=== PATIENT | male | born 1945 | race Asian ===

== ENCOUNTER 2017-12-06 04:07 | Emergency (ER) | payer OTHER ==
[2017-12-06] MEDS: ONDANSETRON 4 MG INJ IV (04:44)
[2017-12-06] MEDS: morphine 4 MG/ML VIAL IV (04:44)
[2017-12-06] MEDS: SOD CHLORIDE 0.9% 500 ML IV (05:00)
[2017-12-06 05:18] LABS: ADD MAN DIFF? NO
[2017-12-06 05:21] LABS: WHITE BLOOD COUNT 9.2 10^3/ul (4.8-10.8)
[2017-12-06 05:21] LABS: BASOPHIL # 0.1 10^3/ul (0.0-0.1); BASOPHILS % 1.2 % (0.0-2.0); EOSINOPHILS # 1.8 10^3/ul (0.0-0.5); EOSINOPHILS % 19.1 % (0.0-7.0); HEMATOCRIT 35.9 % (42.0-52.0); HEMOGLOBIN 11.5 g/dl (14.0-18.0); LYMPHOCYTES # 1.3 10^3/ul (0.8-2.9); LYMPHOCYTES % 14.1 % (15.0-51.0); MEAN CORPUSCULAR HEMOGLOBIN 29.1 pg (29.0-33.0); MEAN CORPUSCULAR VOLUME 90.9 fl (82.0-101.0); MEAN PLATELET VOLUME 9.2 fl (7.4-10.4); MONOCYTE # 0.6 10^3/ul (0.3-0.9); NEUTROPHIL # 5.5 10^3/ul (1.6-7.5); NEUTROPHILS % 59.3 % (39.0-77.0); PLATELET COUNT 256 10^3/UL (140-415); RED BLOOD COUNT 3.95 10^6/ul (4.70-6.10); RED CELL DISTRIBUTION WIDTH 14.9 % (11.5-14.5)
[2017-12-06 05:39] LABS: INR 0.82; PROTIME 11.4 Sec (11.9-14.9); PT RATIO 0.9
[2017-12-06 05:40] LABS: PARTIAL THROMBOPLASTIN TIME 26.5 Sec (23.0-35.0)
[2017-12-06 05:43] LABS: ALANINE AMINOTRANSFERASE 65 IU/L (13-69); ALBUMIN 3.3 g/dl (3.3-4.9); ALKALINE PHOSPHATASE 158 IU/L (42-121); ANION GAP 12 (8-16); ASPARTATE AMINO TRANSFERASE 36 IU/L (15-46); BILIRUBIN,INDIRECT 0.2 mg/dl (0-1.1); BILIRUBIN,TOTAL 0.2 mg/dl (0.2-1.3); BLOOD UREA NITROGEN 35 mg/dl (7-20); CALCIUM 9.3 mg/dl (8.4-10.2); CARBON DIOXIDE 29 mmol/L (21-31); CHLORIDE 104 mmol/L (97-110); CREATININE 2.14 mg/dl (0.61-1.24); GLUCOSE 133 mg/dl (70-220); SODIUM 142 mmol/L (135-144); TOTAL PROTEIN 6.6 g/dl (6.1-8.1)
[2017-12-06 06:19] LABS: LIPASE 356 U/L (23-300)
[2017-12-06] MEDS: POTASSIUM CHLORIDE (SR) 20 MEQ TAB PO (06:40)
== END 2017-12-06 06:56 | disposition home or self-care (01) ==
LOC: E/R 04:07
DX: R51 Headache (principal); E87.6 Hypokalemia; J45.909 Unspecified asthma, uncomplicated; I10 Essential (primary) hypertension; E11.9 Type 2 diabetes mellitus without complications; Z79.82 Long term (current) use of aspirin; Z87.891 Personal history of nicotine dependence
CPT/HCPCS: 36415; 70450; 71045; 80053; 83690; 84484; 85025; 85610; 85730; 93005; 99285-25

== ENCOUNTER 2017-12-27 03:04 | Observation (INO) | payer OTHER ==
[2017-12-27 03:21] LABS: ADD MAN DIFF? NO
[2017-12-27 03:23] LABS: WHITE BLOOD COUNT 12.8 10^3/ul (4.8-10.8)
[2017-12-27 03:23] LABS: BASOPHIL # 0.2 10^3/ul (0.0-0.1); BASOPHILS % 1.4 % (0.0-2.0); EOSINOPHILS # 1.9 10^3/ul (0.0-0.5); EOSINOPHILS % 15.1 % (0.0-7.0); HEMOGLOBIN 13.4 g/dl (14.0-18.0); LYMPHOCYTES # 3.2 10^3/ul (0.8-2.9); LYMPHOCYTES % 24.6 % (15.0-51.0); MEAN CORPUSCULAR HEMOGLOBIN 29.7 pg (29.0-33.0); MEAN CORPUSCULAR HGB CONC 31.2 g/dl (32.0-37.0); MEAN CORPUSCULAR VOLUME 95.3 fl (82.0-101.0); MEAN PLATELET VOLUME 8.9 fl (7.4-10.4); MONOCYTE # 0.6 10^3/ul (0.3-0.9); MONOCYTES % 4.6 % (0.0-11.0); NEUTROPHIL # 6.9 10^3/ul (1.6-7.5); PLATELET COUNT 286 10^3/UL (140-415); RED BLOOD COUNT 4.51 10^6/ul (4.70-6.10); RED CELL DISTRIBUTION WIDTH 14.6 % (11.5-14.5)
[2017-12-27] MEDS: ALBUTEROL 0.5% (NEB) 2.5 MG/0.5 ML AMP INH (03:29)
[2017-12-27] MEDS: IPRATROPIUM (NEB) 0.5 MG/2.5 ML AMP INH (03:29)
[2017-12-27 03:42] LABS: INR 0.86; PROTIME 11.8 Sec (11.9-14.9); PT RATIO 0.9
[2017-12-27 03:43] LABS: PARTIAL THROMBOPLASTIN TIME 28.2 Sec (23.0-35.0)
[2017-12-27] MEDS: METHYLPREDNISOLONE 125 MG INJ IV (03:56)
[2017-12-27 03:59] LABS: ALBUMIN 4.3 g/dl (3.3-4.9); ALKALINE PHOSPHATASE 114 IU/L (42-121); ANION GAP 16 (8-16); ASPARTATE AMINO TRANSFERASE 44 IU/L (15-46); BILIRUBIN,INDIRECT 0.3 mg/dl (0-1.1); BILIRUBIN,TOTAL 0.3 mg/dl (0.2-1.3); BLOOD UREA NITROGEN 39 mg/dl (7-20); CARBON DIOXIDE 25 mmol/L (21-31); CHLORIDE 110 mmol/L (97-110); CREATININE 2.46 mg/dl (0.61-1.24); GLUCOSE 184 mg/dl (70-220); POTASSIUM 4.6 mmol/L (3.5-5.1); SODIUM 146 mmol/L (135-144); TOTAL PROTEIN 7.6 g/dl (6.1-8.1)
[2017-12-27 04:08] LABS: B-TYPE NATRIURETIC PEPTIDE 242 PG/ML (0-125)
[2017-12-27 04:12] LABS: TROPONIN-I 0.021 ng/ml (0.000-0.120)
[2017-12-27 05:48] LABS: ALANINE AMINOTRANSFERASE 52 IU/L (13-69)
[2017-12-27 09:00] LABS: LACTIC ACID 1.2 mmol/L (0.5-2.0)
[2017-12-27] MEDS: MULTIVIT/CA CARB/B CMPLX/FA TAB PO (09:00)
[2017-12-27] MEDS: AMLODIPINE 10 MG TAB PO (09:00)
[2017-12-27] MEDS ORDERED: ACETAMINOPHEN 325 MG TAB PO (09:00)
[2017-12-27] MEDS: ALLOPURINOL 100 MG TAB PO (09:00)
[2017-12-27] MEDS ORDERED: ONDANSETRON 4 MG INJ IV (09:00)
[2017-12-27] MEDS ORDERED: DOCUSATE SODIUM 100 MG CAP PO (09:00)
[2017-12-27] MEDS ORDERED: NACL 0.9% 3 ML SYG IV (09:00)
[2017-12-27] MEDS ORDERED: ALBUTEROL 0.083% (NEB) 2.5 MG/3 ML AMP HHN (09:00)
[2017-12-27] MEDS: ALBUTEROL/IPRATROPIUM (NEB) 3 ML AMP HHN ×3 (09:16→19:55)
[2017-12-27] MEDS ORDERED: ASPIRIN (EC) 81 MG TAB PO (10:00)
[2017-12-27] MEDS ORDERED: GLUCAGON 1 MG INJ IM (10:00)
[2017-12-27] MEDS ORDERED: DEXTROSE 50% 50 ML SYRINGE IV ×2 (10:00)
[2017-12-27] MEDS ORDERED: GLUCOSE GEL 15 GRAM TUBE BUCCAL (10:00)
[2017-12-27] MEDS ORDERED: GLUCOSE GEL 15 GRAM TUBE PO ×2 (10:00)
[2017-12-27] MEDS: METHYLPREDNISOLONE 40 MG INJ IV ×3 (10:21→20:31)
[2017-12-27] MEDS: DOXYCYCLINE 100 MG in SOD CHLORIDE 0.9% 250 ML IVPB ×2 (11:22→20:27)
[2017-12-27] MEDS: INSULIN ASPART [NOVOLOG] 3 ML PEN SC ×3 (11:45→20:48)
[2017-12-27] MEDS: HEPARIN 5,000 UNIT/0.5 ML VIAL SC ×2 (15:21→20:32)
[2017-12-27] MEDS: ATORVASTATIN 20 MG TAB PO (20:29)
[2017-12-28] MEDS: ALBUTEROL/IPRATROPIUM (NEB) 3 ML AMP HHN ×3 (01:13→14:00)
[2017-12-28] MEDS: ACCU-CHEK XX (02:00)
[2017-12-28] MEDS: METHYLPREDNISOLONE 40 MG INJ IV ×2 (06:13→13:30)
[2017-12-28] MEDS: HEPARIN 5,000 UNIT/0.5 ML VIAL SC (06:14)
[2017-12-28 07:18] LABS: ADD MAN DIFF? NO
[2017-12-28 07:27] LABS: BASOPHILS % 0.1 % (0.0-2.0); HEMATOCRIT 34.9 % (42.0-52.0); HEMOGLOBIN 11.1 g/dl (14.0-18.0); LYMPHOCYTES # 1.1 10^3/ul (0.8-2.9); LYMPHOCYTES % 12.1 % (15.0-51.0); MEAN CORPUSCULAR HEMOGLOBIN 29.6 pg (29.0-33.0); MEAN CORPUSCULAR HGB CONC 31.8 g/dl (32.0-37.0); MEAN CORPUSCULAR VOLUME 93.1 fl (82.0-101.0); MEAN PLATELET VOLUME 9.3 fl (7.4-10.4); MONOCYTE # 0.2 10^3/ul (0.3-0.9); MONOCYTES % 2.4 % (0.0-11.0); NEUTROPHIL # 7.9 10^3/ul (1.6-7.5); NEUTROPHILS % 84.9 % (39.0-77.0); PLATELET COUNT 252 10^3/UL (140-415); RED BLOOD COUNT 3.75 10^6/ul (4.70-6.10); RED CELL DISTRIBUTION WIDTH 14.5 % (11.5-14.5)
[2017-12-28 07:27] LABS: WHITE BLOOD COUNT 9.3 10^3/ul (4.8-10.8)
[2017-12-28 07:53] LABS: ANION GAP 11 (8-16); BLOOD UREA NITROGEN 61 mg/dl (7-20); CALCIUM 9.1 mg/dl (8.4-10.2); CARBON DIOXIDE 23 mmol/L (21-31); CHLORIDE 108 mmol/L (97-110); CREATININE 2.94 mg/dl (0.61-1.24); GLUCOSE 163 mg/dl (70-220); POTASSIUM 3.8 mmol/L (3.5-5.1); SODIUM 142 mmol/L (135-144)
[2017-12-28] MEDS: ALLOPURINOL 100 MG TAB PO (08:01)
[2017-12-28] MEDS: MULTIVIT/CA CARB/B CMPLX/FA TAB PO (08:01)
[2017-12-28] MEDS: AMLODIPINE 10 MG TAB PO (08:01)
[2017-12-28] MEDS: DOXYCYCLINE 100 MG in SOD CHLORIDE 0.9% 250 ML IVPB (08:06)
[2017-12-28 08:28] LABS: AADO2 Arterial 66.6 mmHg (7.0-24.0); Allen Test ACCEPTAB; Arterial Base Excess -4.4 mmol/L (-3.0-3); Arterial Blood Gas Oxygen Sat 99.4 mmHG (95.0-100.0); Arterial COHb 0.4 % (0.0-3.0); Arterial Fraction of Oxyhgb 98.8 % (93.0-99.0); Arterial HCO3 22.2 mmol/L (22.0-26.0); Arterial MetHb 0.2 % (0.0-1.5); Arterial Total Hemglobin 13.1 g/dl (12.0-18.0); Arterial pCO2 46.3 mmhg (35-45); Blood Gas IEPAP 18/5; MODE MASK - BIPAP; Site Right Radial
[2017-12-28] MEDS: INSULIN ASPART [NOVOLOG] 3 ML PEN SC ×3 (08:30→17:22)
[2017-12-28] MEDS ORDERED: HEPARIN 5,000 UNIT/0.5 ML VIAL (11:27)
[2017-12-28] MEDS: SOD CHLORIDE 0.9% 500 ML IV (11:29)
[2017-12-28] MEDS: HEPARIN SODIUM 5,000 UNIT/ML VIAL SC ×2 (11:56→13:20)
[2017-12-28 14:04] LABS: SODIUM,URINE RANDOM 52 mmol/L (30-90)
[2017-12-28 14:04] LABS: CREATININE,URINE RANDOM 68.08 mg/dl (20-370)
[2017-12-28 16:26] LABS: ANION GAP 12 (5-13); BLOOD UREA NITROGEN 65 mg/dl (7-20); CALCIUM 8.8 mg/dl (8.4-10.2); CARBON DIOXIDE 21 mmol/L (21-31); CHLORIDE 109 mmol/L (97-110); GLUCOSE 219 mg/dl (70-220); POTASSIUM 3.7 mmol/L (3.5-5.1); SODIUM 142 mmol/L (135-144)
== END 2017-12-28 19:02 | disposition home or self-care (01) ==
LOC: E/R 03:04 → TEL 06:06
DX: J44.1 Chronic obstructive pulmonary disease with (acute) exacerbation (principal); I12.9 Hypertensive chronic kidney disease with stage 1 through stage 4 chronic kidney disease, or unspecified chronic kidney disease; N18.9 Chronic kidney disease, unspecified; E11.9 Type 2 diabetes mellitus without complications; E78.5 Hyperlipidemia, unspecified; M10.9 Gout, unspecified; N20.0 Calculus of kidney; N28.1 Cyst of kidney, acquired
CPT/HCPCS: 36415; 36600; 71045; 76775; 80048; 80053; 82803; 82962; 83605; 83880; 84155; 84300; 84484; 85025; 85610; 85730; 90686; 93005; 94640; 94644; 94660; 94664; 96374; 99285-25; G0378

== ENCOUNTER 2018-04-30 09:54 | Emergency (ER) | payer OTHER ==
[2018-04-30] MEDS: HYDROmorphONE 2 MG/ML SYG IM (10:44)
[2018-04-30] MEDS: ONDANSETRON (ODT) 4 MG TAB ODT (10:44)
== END 2018-04-30 11:28 | disposition home or self-care (01) ==
LOC: E/R 09:54
DX: M54.32 Sciatica, left side (principal); J44.9 Chronic obstructive pulmonary disease, unspecified; I10 Essential (primary) hypertension; Z87.891 Personal history of nicotine dependence; Z79.82 Long term (current) use of aspirin
CPT/HCPCS: 96372; 99284-25; J1170

== ENCOUNTER 2018-05-02 11:06 | Emergency (ER) | payer OTHER ==
[2018-05-02] MEDS: IBUPROFEN 600 MG TAB PO (12:47)
== END 2018-05-02 13:25 | disposition home or self-care (01) ==
LOC: E/R 11:06
DX: M54.42 Lumbago with sciatica, left side (principal); J44.9 Chronic obstructive pulmonary disease, unspecified; I10 Essential (primary) hypertension; F17.210 Nicotine dependence, cigarettes, uncomplicated; Z79.82 Long term (current) use of aspirin
CPT/HCPCS: 72110; 73510; 99284-25

== ENCOUNTER 2018-05-03 08:45 | Emergency (ER) | payer OTHER ==
[2018-05-03 10:19] LABS: ADD MAN DIFF? NO
[2018-05-03 10:24] LABS: WHITE BLOOD COUNT 7.3 10^3/ul (4.8-10.8)
[2018-05-03 10:24] LABS: BASOPHILS % 0.4 % (0.0-2.0); EOSINOPHILS # 0.1 10^3/ul (0.0-0.5); EOSINOPHILS % 1.5 % (0.0-7.0); HEMATOCRIT 37.6 % (42.0-52.0); HEMOGLOBIN 11.6 g/dl (14.0-18.0); LYMPHOCYTES # 1.7 10^3/ul (0.8-2.9); LYMPHOCYTES % 23.5 % (15.0-51.0); MEAN CORPUSCULAR HGB CONC 30.9 g/dl (32.0-37.0); MEAN CORPUSCULAR VOLUME 90.6 fl (82.0-101.0); MEAN PLATELET VOLUME 9.1 fl (7.4-10.4); MONOCYTE # 0.7 10^3/ul (0.3-0.9); MONOCYTES % 9.6 % (0.0-11.0); NEUTROPHIL # 4.7 10^3/ul (1.6-7.5); PLATELET COUNT 224 10^3/UL (140-415); RED BLOOD COUNT 4.15 10^6/ul (4.70-6.10); RED CELL DISTRIBUTION WIDTH 15.8 % (11.5-14.5)
[2018-05-03 10:44] LABS: ALANINE AMINOTRANSFERASE 44 IU/L (13-69); ALBUMIN 3.3 g/dl (3.3-4.9); ALKALINE PHOSPHATASE 57 IU/L (42-121); ASPARTATE AMINO TRANSFERASE 32 IU/L (15-46); BILIRUBIN,INDIRECT 0.2 mg/dl (0-1.1); BILIRUBIN,TOTAL 0.2 mg/dl (0.2-1.3); BLOOD UREA NITROGEN 54 mg/dl (7-20); CALCIUM 9.3 mg/dl (8.4-10.2); CHLORIDE 97 mmol/L (97-110); CREATININE 2.08 mg/dl (0.61-1.24); GLUCOSE 104 mg/dl (70-220); LIPASE 367 U/L (23-300); POTASSIUM 3.4 mmol/L (3.5-5.1); SODIUM 142 mmol/L (135-144); TOTAL PROTEIN 6.3 g/dl (6.1-8.1)
[2018-05-03 10:50] LABS: ANION GAP 6 (5-13); CARBON DIOXIDE 39 mmol/L (21-31)
[2018-05-03 12:05] LABS: ADD UMIC YES; UR ASCORBIC ACID 20 mg/dL (NEGATIVE); UR BACTERIA FEW /HPF (NONE SEEN); UR BILIRUBIN (Dip) NEGATIVE (NEGATIVE); UR BLOOD (Dip) NEGATIVE (NEGATIVE); UR CLARITY CLEAR (CLEAR); UR COLOR YELLOW (YELLOW); UR GLUCOSE (Dip) NEGATIVE (NEGATIVE); UR KETONES (Dip) NEGATIVE (NEGATIVE); UR LEUKOCYTE ESTERASE (Dip) NEGATIVE Leu/ul (NEGATIVE); UR MUCUS FEW /HPF (NONE SEEN); UR NITRITE (Dip) NEGATIVE (NEGATIVE); UR RBC 1 /HPF (0-5); UR SPECIFIC GRAVITY (Dip) 1.012 (1.003-1.030); UR TOTAL PROTEIN (Dip) 2+ mg/dl (NEGATIVE); UR UROBILINOGEN (Dip) NEGATIVE (NEGATIVE); UR WBC 1 /HPF (0-5)
== END 2018-05-03 13:22 | disposition home or self-care (01) ==
LOC: E/R 08:45
DX: N28.9 Disorder of kidney and ureter, unspecified (principal); J45.909 Unspecified asthma, uncomplicated; I10 Essential (primary) hypertension; J44.9 Chronic obstructive pulmonary disease, unspecified; Z79.82 Long term (current) use of aspirin; Z87.891 Personal history of nicotine dependence
CPT/HCPCS: 36415; 72148; 80053; 81001; 83690; 84484; 85025; 99284-25

== ENCOUNTER 2018-05-05 15:37 | Emergency (ER) | payer OTHER ==
[2018-05-05] MEDS: ACETAMINOPHEN 500 MG TAB PO (16:11)
[2018-05-05] MEDS: HYDROmorphONE 2 MG/ML SYG IM (16:22)
[2018-05-05] MEDS: ONDANSETRON (ODT) 4 MG TAB ODT (16:22)
== END 2018-05-05 16:56 | disposition home or self-care (01) ==
LOC: E/R 15:37
DX: M54.32 Sciatica, left side (principal); J44.9 Chronic obstructive pulmonary disease, unspecified; I10 Essential (primary) hypertension; Z79.82 Long term (current) use of aspirin; Z87.891 Personal history of nicotine dependence
CPT/HCPCS: 51702; 96372; 99284-25

== ENCOUNTER 2018-05-15 16:04 | Emergency (ER) | payer OTHER ==
[2018-05-15 18:49] LABS: ADD MAN DIFF? NO
[2018-05-15 18:54] LABS: WHITE BLOOD COUNT 7.7 10^3/ul (4.8-10.8)
[2018-05-15 18:54] LABS: BASOPHILS % 0.4 % (0.0-2.0); EOSINOPHILS % 0.5 % (0.0-7.0); HEMOGLOBIN 12.2 g/dl (14.0-18.0); LYMPHOCYTES # 1.2 10^3/ul (0.8-2.9); LYMPHOCYTES % 16.1 % (15.0-51.0); MEAN CORPUSCULAR HEMOGLOBIN 28.4 pg (29.0-33.0); MEAN CORPUSCULAR HGB CONC 31.3 g/dl (32.0-37.0); MEAN CORPUSCULAR VOLUME 90.7 fl (82.0-101.0); MEAN PLATELET VOLUME 8.7 fl (7.4-10.4); MONOCYTE # 0.5 10^3/ul (0.3-0.9); MONOCYTES % 6.9 % (0.0-11.0); NEUTROPHIL # 5.8 10^3/ul (1.6-7.5); NEUTROPHILS % 75.1 % (39.0-77.0); PLATELET COUNT 245 10^3/UL (140-415); RED CELL DISTRIBUTION WIDTH 17.4 % (11.5-14.5)
[2018-05-15 19:11] LABS: ANION GAP 8 (5-13); BLOOD UREA NITROGEN 44 mg/dl (7-20); CALCIUM 9.5 mg/dl (8.4-10.2); CARBON DIOXIDE 35 mmol/L (21-31); CHLORIDE 97 mmol/L (97-110); CREATININE 1.89 mg/dl (0.61-1.24); GLUCOSE 138 mg/dl (70-220); POTASSIUM 3.3 mmol/L (3.5-5.1); SODIUM 140 mmol/L (135-144)
[2018-05-15 19:13] LABS: INR 0.78; PARTIAL THROMBOPLASTIN TIME 22.6 Sec (23.0-35.0); PT RATIO 0.9
[2018-05-15 19:23] LABS: B-TYPE NATRIURETIC PEPTIDE 341 PG/ML (0-125); TROPONIN-I 0.028 ng/ml (0.000-0.120)
[2018-05-15 19:26] LABS: AADO2 Arterial 47.3 mmHg (7.0-24.0); Allen Test ACCEPTAB; Arterial Base Excess 8.3 mmol/L (-3.0-3); Arterial Blood Gas Oxygen Sat 96.8 mmHG (95.0-100.0); Arterial COHb 0.2 % (0.0-3.0); Arterial Fraction of Oxyhgb 96.4 % (93.0-99.0); Arterial MetHb 0.2 % (0.0-1.5); Arterial pCO2 45.9 mmhg (35-45); MODE NASAL CANNULA; Site Right Radial
[2018-05-15] MEDS: POTASSIUM CHLORIDE (SR) 10 MEQ TAB PO (20:18)
== END 2018-05-15 20:30 | disposition home or self-care (01) ==
LOC: E/R 20:30
DX: R09.81 Nasal congestion (principal); E87.6 Hypokalemia; D64.9 Anemia, unspecified; J44.9 Chronic obstructive pulmonary disease, unspecified; I12.9 Hypertensive chronic kidney disease with stage 1 through stage 4 chronic kidney disease, or unspecified chronic kidney disease; N18.9 Chronic kidney disease, unspecified; E11.22 Type 2 diabetes mellitus with diabetic chronic kidney disease; J45.901 Unspecified asthma with (acute) exacerbation; Z87.891 Personal history of nicotine dependence; Z79.82 Long term (current) use of aspirin
CPT/HCPCS: 36415; 36600; 71045; 80048; 82803; 83880; 84484; 85025; 85610; 85730; 93005; 99285-25

== ENCOUNTER 2018-06-11 03:05 | Emergency (ER) | payer OTHER ==
[2018-06-11 04:55] LABS: URINE BLOOD (Dip) POC Negative (NEGATIVE); URINE KETONES (Dip) POC Negative (NEGATIVE); URINE LEUKOCYTE EST (Dip) POC Negative (NEGATIVE); URINE NITRITE (Dip) POC Negative (NEGATIVE); URINE TOTAL PROTEIN POC 2+ (NEGATIVE)
== END 2018-06-11 06:33 | disposition home or self-care (01) ==
LOC: E/R 03:05
DX: R33.9 Retention of urine, unspecified (principal); I10 Essential (primary) hypertension; J45.909 Unspecified asthma, uncomplicated; Z79.82 Long term (current) use of aspirin; Z87.891 Personal history of nicotine dependence
CPT/HCPCS: 51702; 81003; 99283-25

== ENCOUNTER 2018-06-13 09:25 | Emergency (ER) | payer OTHER | END 2018-06-13 12:38 | disposition home or self-care (01) | LOC: E/R 09:25 | DX: Z46.6 Encounter for fitting and adjustment of urinary device (principal); I10 Essential (primary) hypertension; J44.9 Chronic obstructive pulmonary disease, unspecified; Z79.82 Long term (current) use of aspirin | CPT/HCPCS: 99282 ==

== ENCOUNTER 2018-10-17 06:39 | Inpatient (IN) | payer OTHER ==
[2018-10-17] MEDS: ASPIRIN 325 MG TAB PO (07:12)
[2018-10-17 07:13] LABS: ADD MAN DIFF? NO
[2018-10-17] MEDS: METOPROLOL 5 MG INJ IV (07:13)
[2018-10-17] MEDS: FUROSEMIDE 40 MG INJ IV ×2 (07:13→16:13)
[2018-10-17 07:16] LABS: BASOPHILS % 0.5 % (0.0-2.0); EOSINOPHILS # 0.1 10^3/ul (0.0-0.5); EOSINOPHILS % 1.6 % (0.0-7.0); HEMATOCRIT 40.9 % (42.0-52.0); HEMOGLOBIN 12.5 g/dl (14.0-18.0); LYMPHOCYTES # 1.2 10^3/ul (0.8-2.9); LYMPHOCYTES % 15.9 % (15.0-51.0); MEAN CORPUSCULAR HEMOGLOBIN 28.5 pg (29.0-33.0); MEAN CORPUSCULAR HGB CONC 30.6 g/dl (32.0-37.0); MEAN CORPUSCULAR VOLUME 93.2 fl (82.0-101.0); MEAN PLATELET VOLUME 9.4 fl (7.4-10.4); MONOCYTE # 0.8 10^3/ul (0.3-0.9); MONOCYTES % 10.5 % (0.0-11.0); NEUTROPHIL # 5.4 10^3/ul (1.6-7.5); NEUTROPHILS % 70.3 % (39.0-77.0); PLATELET COUNT 195 10^3/UL (140-415); RED BLOOD COUNT 4.39 10^6/ul (4.70-6.10); RED CELL DISTRIBUTION WIDTH 15.2 % (11.5-14.5)
[2018-10-17 07:16] LABS: WHITE BLOOD COUNT 7.7 10^3/ul (4.8-10.8)
[2018-10-17 07:36] LABS: ALANINE AMINOTRANSFERASE 34 IU/L (13-69); ALBUMIN 3.6 g/dl (3.3-4.9); ALBUMIN/GLOBULIN RATIO 1.09; ALKALINE PHOSPHATASE 43 IU/L (42-121); ANION GAP 6 (5-13); ASPARTATE AMINO TRANSFERASE 45 IU/L (15-46); BILIRUBIN,INDIRECT 0.4 mg/dl (0-1.1); BILIRUBIN,TOTAL 0.4 mg/dl (0.2-1.3); BLOOD UREA NITROGEN 53 mg/dl (7-20); CARBON DIOXIDE 32 mmol/L (21-31); CHLORIDE 104 mmol/L (97-110); CREATININE 2.26 mg/dl (0.61-1.24); GLUCOSE 83 mg/dl (70-220); INR 0.84; POTASSIUM 3.7 mmol/L (3.5-5.1); PROTIME 11.6 Sec (11.9-14.9); PT RATIO 0.9; SODIUM 142 mmol/L (135-144); TOTAL PROTEIN 6.9 g/dl (6.1-8.1)
[2018-10-17 07:47] LABS: B-TYPE NATRIURETIC PEPTIDE 511 PG/ML (0-125); TROPONIN-I 0.042 ng/ml (0.000-0.120)
[2018-10-17] MEDS ORDERED: ACETAMINOPHEN 325 MG TAB PO (08:30)
[2018-10-17] MEDS: ENOXAPARIN 100 MG/ML SYG SC (08:52)
[2018-10-17] MEDS: morphine 2 MG INJ IV (08:53)
[2018-10-17 11:36] LABS: TROPONIN-I 0.046 ng/ml (0.000-0.120)
[2018-10-17 14:57] LABS: CREATINE KINASE 91 IU/L (23-200)
[2018-10-17 15:07] LABS: CK INDEX 3.4
[2018-10-17 15:10] LABS: TROPONIN-I 0.051 ng/ml (0.000-0.120)
[2018-10-17 15:14] LABS: CK-MB 3.05 ng/ml (0.0-2.4)
[2018-10-17] MEDS: METOPROLOL 25 MG TAB PO ×2 (16:14→20:56)
[2018-10-17 20:13] LABS: CREATINE KINASE 87 IU/L (23-200)
[2018-10-17 20:25] LABS: CK INDEX 3.8; TROPONIN-I 0.051 ng/ml (0.000-0.120)
[2018-10-17 20:26] LABS: CK-MB 3.31 ng/ml (0.0-2.4)
[2018-10-17] MEDS: HYDROCODONE/APAP (5/325) TAB PO (20:56)
[2018-10-17] MEDS: APIXABAN 5 MG TABLET PO (20:56)
[2018-10-17] MEDS: GABAPENTIN 100 MG CAP PO (20:56)
[2018-10-17] MEDS ORDERED: NON-FORMULARY/PATIENT OWN MED (Albuterol/Ipratropium* (Combivent Respimat*) 1 PUFF) INHALATION (21:00)
[2018-10-18] MEDS: HYDROCODONE/APAP (5/325) TAB PO ×2 (00:12→21:48)
[2018-10-18] MEDS: ONDANSETRON 4 MG INJ IV (03:46)
[2018-10-18] MEDS: METOPROLOL 25 MG TAB PO ×2 (06:04→15:19)
[2018-10-18] MEDS: GABAPENTIN 100 MG CAP PO ×3 (09:04→20:30)
[2018-10-18] MEDS: APIXABAN 5 MG TABLET PO ×2 (09:05→20:29)
[2018-10-18] MEDS: FINASTERIDE 5 MG TAB PO (09:06)
[2018-10-18] MEDS: BUDESONIDE (NEB) 0.5MG/2ML AMP INH ×2 (09:18→20:06)
[2018-10-18] MEDS: ARFORMOTEROL TARTRATE 15MCG/2 ML AMP INH ×2 (09:19→20:07)
[2018-10-18] MEDS: MULTIVIT/CA CARB/B CMPLX/FA TAB PO (09:29)
[2018-10-18] MEDS: FUROSEMIDE 40 MG INJ IV (09:30)
[2018-10-18 10:42] LABS: ANION GAP 7 (5-13); BLOOD UREA NITROGEN 58 mg/dl (7-20); CALCIUM 8.6 mg/dl (8.4-10.2); CARBON DIOXIDE 32 mmol/L (21-31); CHLORIDE 103 mmol/L (97-110); GLUCOSE 62 mg/dl (70-220); POTASSIUM 3.7 mmol/L (3.5-5.1); SODIUM 142 mmol/L (135-144)
[2018-10-18 14:10] LABS: AADO2 Arterial 25.8 mmHg (7.0-24.0); Allen Test ACCEPTAB; Arterial Base Excess -1.2 mmol/L (-3.0-3); Arterial Blood Gas Oxygen Sat 97.6 mmHG (95.0-100.0); Arterial COHb 0.4 % (0.0-3.0); Arterial Fraction of Oxyhgb 96.8 % (93.0-99.0); Arterial HCO3 26.9 mmol/L (22.0-26.0); Arterial MetHb 0.4 % (0.0-1.5); Arterial pCO2 60.7 mmhg (35-45); MODE NASAL CANNULA; Site Right Radial
[2018-10-18] MEDS: METHYLPREDNISOLONE 40 MG INJ IV ×2 (15:06→21:09)
[2018-10-18] MEDS: METOPROLOL (XL) 25 MG TAB PO (20:29)
[2018-10-19 05:06] LABS: AADO2 Arterial 59.4 mmHg (7.0-24.0); Allen Test ACCEPTAB; Arterial Blood Gas Oxygen Sat 97.3 mmHG (95.0-100.0); Arterial COHb 0.6 % (0.0-3.0); Arterial Fraction of Oxyhgb 96.4 % (93.0-99.0); Arterial HCO3 22.2 mmol/L (22.0-26.0); Arterial MetHb 0.3 % (0.0-1.5); Arterial pCO2 44.4 mmhg (35-45); Blood Gas IEPAP 16/8; MODE MASK - BIPAP; Site Right Radial
[2018-10-19] MEDS: METHYLPREDNISOLONE 40 MG INJ IV ×3 (05:31→21:09)
[2018-10-19] MEDS: LEVOFLOXACIN 250 MG TAB PO (05:31)
[2018-10-19 06:12] LABS: ANION GAP 15 (5-13); BLOOD UREA NITROGEN 86 mg/dl (7-20); CALCIUM 8.7 mg/dl (8.4-10.2); CARBON DIOXIDE 24 mmol/L (21-31); CHLORIDE 102 mmol/L (97-110); CREATININE 3.47 mg/dl (0.61-1.24); GLUCOSE 171 mg/dl (70-220); POTASSIUM 4.5 mmol/L (3.5-5.1); SODIUM 141 mmol/L (135-144)
[2018-10-19] MEDS: BUDESONIDE (NEB) 0.5MG/2ML AMP INH ×2 (08:26→19:52)
[2018-10-19] MEDS: ARFORMOTEROL TARTRATE 15MCG/2 ML AMP INH ×2 (08:26→19:52)
[2018-10-19] MEDS: MULTIVIT/CA CARB/B CMPLX/FA TAB PO (08:37)
[2018-10-19] MEDS: METOPROLOL (XL) 25 MG TAB PO ×2 (08:37→21:09)
[2018-10-19] MEDS: FINASTERIDE 5 MG TAB PO (08:38)
[2018-10-19] MEDS: APIXABAN 5 MG TABLET PO ×2 (08:38→21:09)
[2018-10-19] MEDS: FUROSEMIDE 40 MG INJ IV (08:38)
[2018-10-19] MEDS: GABAPENTIN 100 MG CAP PO ×3 (08:38→21:09)
[2018-10-19] MEDS: SOD CHLORIDE 0.9% 1,000 ML IV (11:28)
[2018-10-19] MEDS: HYDROCODONE/APAP (5/325) TAB PO (21:15)
[2018-10-20] MEDS: SOD CHLORIDE 0.9% 1,000 ML IV ×3 (00:20→13:14)
[2018-10-20] MEDS: METHYLPREDNISOLONE 40 MG INJ IV ×3 (05:47→22:28)
[2018-10-20] MEDS: LEVOFLOXACIN 250 MG TAB PO (05:47)
[2018-10-20 06:17] LABS: ANION GAP 8 (5-13); BLOOD UREA NITROGEN 109 mg/dl (7-20); CARBON DIOXIDE 28 mmol/L (21-31); CHLORIDE 97 mmol/L (97-110); CREATININE 4.45 mg/dl (0.61-1.24); GLUCOSE 292 mg/dl (70-220); POTASSIUM 4.9 mmol/L (3.5-5.1); SODIUM 133 mmol/L (135-144)
[2018-10-20] MEDS: METOPROLOL (XL) 25 MG TAB PO ×2 (08:30→22:28)
[2018-10-20] MEDS: FINASTERIDE 5 MG TAB PO (08:37)
[2018-10-20] MEDS: GABAPENTIN 100 MG CAP PO ×3 (08:38→22:27)
[2018-10-20] MEDS: APIXABAN 5 MG TABLET PO ×2 (08:38→22:29)
[2018-10-20] MEDS: MULTIVIT/CA CARB/B CMPLX/FA TAB PO (08:38)
[2018-10-20] MEDS: ARFORMOTEROL TARTRATE 15MCG/2 ML AMP INH ×2 (10:03→19:07)
[2018-10-20] MEDS: BUDESONIDE (NEB) 0.5MG/2ML AMP INH ×2 (10:03→19:06)
[2018-10-20] MEDS: ALBUMIN HUMAN 25% 100 ML IV ×2 (13:14→20:00)
[2018-10-20] MEDS: HYDROCODONE/APAP (5/325) TAB PO (13:30)
[2018-10-21] MEDS: LEVOFLOXACIN 250 MG TAB PO (06:27)
[2018-10-21] MEDS: SOD CHLORIDE 0.9% 1,000 ML IV ×2 (06:27→17:32)
[2018-10-21] MEDS: METHYLPREDNISOLONE 40 MG INJ IV ×3 (06:27→22:02)
[2018-10-21] MEDS: HYDROCODONE/APAP (5/325) TAB PO ×3 (06:28→19:27)
[2018-10-21] MEDS: ALBUMIN HUMAN 25% 100 ML IV (06:39)
[2018-10-21 07:00] LABS: ANION GAP 10 (5-13); BLOOD UREA NITROGEN 117 mg/dl (7-20); CALCIUM 8.2 mg/dl (8.4-10.2); CARBON DIOXIDE 26 mmol/L (21-31); CHLORIDE 98 mmol/L (97-110); CREATININE 3.93 mg/dl (0.61-1.24); GLUCOSE 354 mg/dl (70-220); POTASSIUM 4.6 mmol/L (3.5-5.1); SODIUM 134 mmol/L (135-144)
[2018-10-21] MEDS: BUDESONIDE (NEB) 0.5MG/2ML AMP INH ×2 (08:42→19:49)
[2018-10-21] MEDS: ARFORMOTEROL TARTRATE 15MCG/2 ML AMP INH ×2 (08:42→20:14)
[2018-10-21] MEDS: FINASTERIDE 5 MG TAB PO (10:02)
[2018-10-21] MEDS: MULTIVIT/CA CARB/B CMPLX/FA TAB PO (10:02)
[2018-10-21] MEDS: APIXABAN 5 MG TABLET PO ×2 (10:03→20:24)
[2018-10-21] MEDS: METOPROLOL (XL) 25 MG TAB PO ×2 (10:03→20:25)
[2018-10-21] MEDS: GABAPENTIN 100 MG CAP PO ×3 (10:03→20:24)
[2018-10-21] MEDS: FLUTICASONE 0.05% 16 GM NAS SPRAY NASAL (14:25)
[2018-10-22 05:40] LABS: ADD MAN DIFF? NO
[2018-10-22 05:47] LABS: ABNORMAL IP MESSAGE 1; HEMATOCRIT 32.2 % (42.0-52.0); HEMOGLOBIN 10.1 g/dl (14.0-18.0); LYMPHOCYTES # 0.2 10^3/ul (0.8-2.9); LYMPHOCYTES % 2.3 % (15.0-51.0); MEAN CORPUSCULAR HEMOGLOBIN 28.6 pg (29.0-33.0); MEAN CORPUSCULAR HGB CONC 31.4 g/dl (32.0-37.0); MEAN CORPUSCULAR VOLUME 91.2 fl (82.0-101.0); MEAN PLATELET VOLUME 9.7 fl (7.4-10.4); MONOCYTE # 0.2 10^3/ul (0.3-0.9); MONOCYTES % 2.5 % (0.0-11.0); NEUTROPHIL # 6.2 10^3/ul (1.6-7.5); NEUTROPHILS % 94.4 % (39.0-77.0); PLATELET COUNT 170 10^3/UL (140-415); POSITIVE DIFF @See below; RED BLOOD COUNT 3.53 10^6/ul (4.70-6.10); RED CELL DISTRIBUTION WIDTH 14.7 % (11.5-14.5)
[2018-10-22 05:47] LABS: WHITE BLOOD COUNT 6.5 10^3/ul (4.8-10.8)
[2018-10-22] MEDS: LEVOFLOXACIN 250 MG TAB PO (06:05)
[2018-10-22] MEDS: METHYLPREDNISOLONE 40 MG INJ IV ×3 (06:05→21:08)
[2018-10-22 06:06] LABS: INR 1.19; PROTIME 15.2 Sec (11.9-14.9); PT RATIO 1.2
[2018-10-22 06:07] LABS: PARTIAL THROMBOPLASTIN TIME 28.1 Sec (23.0-35.0)
[2018-10-22 06:12] LABS: URIC ACID 11.3 mg/dl (3.1-7.9)
[2018-10-22 06:13] LABS: ALANINE AMINOTRANSFERASE 45 IU/L (13-69); ALBUMIN 3.5 g/dl (3.3-4.9); ALKALINE PHOSPHATASE 37 IU/L (42-121); ANION GAP 8 (5-13); ASPARTATE AMINO TRANSFERASE 27 IU/L (15-46); BILIRUBIN,INDIRECT 0.1 mg/dl (0-1.1); BILIRUBIN,TOTAL 0.1 mg/dl (0.2-1.3); BLOOD UREA NITROGEN 112 mg/dl (7-20); CALCIUM 8.7 mg/dl (8.4-10.2); CARBON DIOXIDE 28 mmol/L (21-31); CHLORIDE 102 mmol/L (97-110); CREATININE 3.44 mg/dl (0.61-1.24); GLUCOSE 338 mg/dl (70-220); POTASSIUM 4.8 mmol/L (3.5-5.1); SODIUM 138 mmol/L (135-144)
[2018-10-22 06:21] LABS: B-TYPE NATRIURETIC PEPTIDE 4610 PG/ML (0-125)
[2018-10-22] MEDS: SOD CHLORIDE 0.9% 1,000 ML IV (06:30)
[2018-10-22] MEDS: ALBUTEROL 0.083% (NEB) 2.5 MG/3 ML AMP NEB (07:49)
[2018-10-22] MEDS: ARFORMOTEROL TARTRATE 15MCG/2 ML AMP INH ×2 (07:49→21:15)
[2018-10-22] MEDS: BUDESONIDE (NEB) 0.5MG/2ML AMP INH ×2 (07:50→21:15)
[2018-10-22] MEDS: FLUTICASONE 0.05% 16 GM NAS SPRAY NASAL (08:17)
[2018-10-22] MEDS: HYDROCODONE/APAP (5/325) TAB PO ×2 (08:17→15:57)
[2018-10-22] MEDS: METOPROLOL (XL) 25 MG TAB PO ×3 (08:19→21:00)
[2018-10-22] MEDS: FINASTERIDE 5 MG TAB PO ×2 (08:19→09:27)
[2018-10-22] MEDS: APIXABAN 5 MG TABLET PO ×2 (08:19→09:26)
[2018-10-22] MEDS: GABAPENTIN 100 MG CAP PO ×4 (08:20→21:08)
[2018-10-22 08:49] LABS: Allen Test ACCEPTAB; Arterial Base Excess -2.3 mmol/L (-3.0-3); Arterial Blood Gas Oxygen Sat 99.3 mmHG (95.0-100.0); Arterial COHb 0.3 % (0.0-3.0); Arterial Fraction of Oxyhgb 98.6 % (93.0-99.0); Arterial HCO3 24.9 mmol/L (22.0-26.0); Arterial MetHb 0.4 % (0.0-1.5); Arterial pCO2 53.9 mmhg (35-45); Blood Gas IEPAP 16/8; Blood Gas PS 8; MODE MASK - BIPAP; Site Right Radial
[2018-10-22] MEDS: BUMETANIDE 1 MG INJ IV (08:57)
[2018-10-22] MEDS ORDERED: FLUTICASONE/VILANTEROL 100-25 INH (09:00)
[2018-10-22] MEDS: MULTIVIT/CA CARB/B CMPLX/FA TAB PO (09:26)
[2018-10-22] MEDS ORDERED: SODIUM CHLORIDE 0.9% 1L BAG IV (11:30)
[2018-10-22] MEDS ORDERED: ALBUMIN HUMAN 25% 100 ML IV (11:30)
[2018-10-22 11:57] LABS: HAAIG REFLEX REFLEX FILED
[2018-10-22] MEDS: BUMETANIDE 12 MG in DEXTROSE 5% 72 ML IV (12:04)
[2018-10-22 13:00] LABS: HEPATITIS B SURFACE ANTIGEN NEGATIVE (NEGATIVE)
[2018-10-22] MEDS: ALLOPURINOL 100 MG TAB PO (13:00)
[2018-10-22 13:11] LABS: HIV 1&2 ANTIBODY NEGATIVE (NEGATIVE)
[2018-10-22 13:18] LABS: HEPATITIS B CORE ANTIBODY NEGATIVE (NEGATIVE); HEPATITIS C VIRAL ANTIBODY NEGATIVE (NEGATIVE)
[2018-10-22] MEDS: OXYCODONE/ACETAMINOPHEN (10/325) TAB PO (19:37)
[2018-10-22] MEDS ORDERED: GLUCOSE GEL 15 GRAM TUBE BUCCAL (20:00)
[2018-10-22] MEDS ORDERED: DEXTROSE 50% 50 ML SYRINGE IV ×2 (20:00)
[2018-10-22] MEDS ORDERED: GLUCAGON 1 MG INJ IM (20:00)
[2018-10-22] MEDS ORDERED: GLUCOSE GEL 15 GRAM TUBE PO (20:00)
[2018-10-22] MEDS: INSULIN GLARGINE [LANTus] (100 UNITS/ML) SYG SC (20:36)
[2018-10-22] MEDS: INSULIN ASPART [NOVOLOG] 3 ML PEN SC (20:36)
[2018-10-22] MEDS: HEPARIN 5,000 UNIT/1 ML VIAL SC (21:30)
[2018-10-23] MEDS: INSULIN ASPART [NOVOLOG] 3 ML PEN SC ×6 (00:22→21:00)
[2018-10-23] MEDS: HEPARIN 1000 UNITS/ML 10 ML INJ CATHETER (01:46)
[2018-10-23] MEDS: HYDROCODONE/APAP (5/325) TAB PO (04:36)
[2018-10-23] MEDS: METHYLPREDNISOLONE 40 MG INJ IV (06:00)
[2018-10-23] MEDS: LEVOFLOXACIN 250 MG TAB PO (06:00)
[2018-10-23 06:30] LABS: ADD MAN DIFF? NO
[2018-10-23 06:39] LABS: ABNORMAL IP MESSAGE 1; HEMOGLOBIN 11.2 g/dl (14.0-18.0); LYMPHOCYTES # 0.2 10^3/ul (0.8-2.9); MEAN CORPUSCULAR HEMOGLOBIN 28.4 pg (29.0-33.0); MEAN CORPUSCULAR HGB CONC 31.1 g/dl (32.0-37.0); MEAN CORPUSCULAR VOLUME 91.4 fl (82.0-101.0); MONOCYTE # 0.5 10^3/ul (0.3-0.9); MONOCYTES % 6.7 % (0.0-11.0); NEUTROPHIL # 6.8 10^3/ul (1.6-7.5); NEUTROPHILS % 90.8 % (39.0-77.0); PLATELET COUNT 201 10^3/UL (140-415); POSITIVE DIFF @See below; RED BLOOD COUNT 3.94 10^6/ul (4.70-6.10); RED CELL DISTRIBUTION WIDTH 14.5 % (11.5-14.5)
[2018-10-23 06:39] LABS: WHITE BLOOD COUNT 7.5 10^3/ul (4.8-10.8)
[2018-10-23 06:54] LABS: PHOSPHORUS 4.8 mg/dl (2.5-4.9)
[2018-10-23 06:54] LABS: MAGNESIUM 2.7 mg/dl (1.7-2.5)
[2018-10-23 07:11] LABS: ALANINE AMINOTRANSFERASE 36 IU/L (13-69); ALBUMIN 3.9 g/dl (3.3-4.9); ALBUMIN/GLOBULIN RATIO 1.39; ALKALINE PHOSPHATASE 38 IU/L (42-121); ANION GAP 7 (5-13); ASPARTATE AMINO TRANSFERASE 25 IU/L (15-46); BILIRUBIN,INDIRECT 0.3 mg/dl (0-1.1); BILIRUBIN,TOTAL 0.3 mg/dl (0.2-1.3); BLOOD UREA NITROGEN 77 mg/dl (7-20); CALCIUM 9.2 mg/dl (8.4-10.2); CARBON DIOXIDE 33 mmol/L (21-31); CHLORIDE 100 mmol/L (97-110); CREATININE 2.71 mg/dl (0.61-1.24); GLUCOSE 148 mg/dl (70-220); POTASSIUM 4.2 mmol/L (3.5-5.1); SODIUM 140 mmol/L (135-144); TOTAL PROTEIN 6.7 g/dl (6.1-8.1)
[2018-10-23 08:05] LABS: AADO2 Arterial 121.8 mmHg (7.0-24.0); Allen Test ACCEPTAB; Arterial Base Excess 3.3 mmol/L (-3.0-3); Arterial Blood Gas Oxygen Sat 99.1 mmHG (95.0-100.0); Arterial COHb 0.1 % (0.0-3.0); Arterial Fraction of Oxyhgb 98.6 % (93.0-99.0); Arterial HCO3 30.2 mmol/L (22.0-26.0); Arterial MetHb 0.4 % (0.0-1.5); Arterial pCO2 56.4 mmhg (35-45); Blood Gas IEPAP 16/8; Blood Gas PS 12; MODE MASK - BIPAP; Site Right Radial
[2018-10-23] MEDS: FINASTERIDE 5 MG TAB PO (09:08)
[2018-10-23] MEDS: OXYCODONE/ACETAMINOPHEN (10/325) TAB PO (09:08)
[2018-10-23] MEDS: GABAPENTIN 100 MG CAP PO ×3 (09:09→21:06)
[2018-10-23] MEDS: MULTIVIT/CA CARB/B CMPLX/FA TAB PO (09:09)
[2018-10-23] MEDS: METOPROLOL (XL) 25 MG TAB PO (09:09)
[2018-10-23] MEDS: ALLOPURINOL 100 MG TAB PO (09:09)
[2018-10-23] MEDS: HEPARIN 5,000 UNIT/1 ML VIAL SC ×2 (09:13→21:19)
[2018-10-23] MEDS: DOCUSATE SODIUM 100 MG CAP PO ×2 (09:58→21:06)
[2018-10-23] MEDS: POLYETHYLENE GLYCOL 17 GM PACKET PO (09:58)
[2018-10-23] MEDS: BUMETANIDE 1 MG INJ IV ×2 (14:55→21:06)
[2018-10-23] MEDS ORDERED: ONDANSETRON 4 MG INJ IV (15:30)
[2018-10-23] MEDS: BUDESONIDE (NEB) 0.5MG/2ML AMP INH ×2 (16:38→19:38)
[2018-10-23] MEDS: ARFORMOTEROL TARTRATE 15MCG/2 ML AMP INH ×2 (16:38→19:38)
[2018-10-23] MEDS: HEPARIN 1000 UNITS/ML 10 ML INJ HE (20:37)
[2018-10-23] MEDS: INSULIN GLARGINE [LANTus] (100 UNITS/ML) SYG SC (21:04)
[2018-10-24] MEDS: INSULIN ASPART [NOVOLOG] 3 ML PEN SC ×6 (01:00→21:11)
[2018-10-24] MEDS ORDERED: LORAZEPAM 2 MG INJ IV (04:30)
[2018-10-24 06:13] LABS: ADD MAN DIFF? NO
[2018-10-24] MEDS: LEVOFLOXACIN 250 MG TAB PO (06:18)
[2018-10-24 06:20] LABS: WHITE BLOOD COUNT 7.6 10^3/ul (4.8-10.8)
[2018-10-24 06:20] LABS: BASOPHILS % 0.1 % (0.0-2.0); HEMATOCRIT 38.2 % (42.0-52.0); HEMOGLOBIN 11.8 g/dl (14.0-18.0); LYMPHOCYTES # 0.7 10^3/ul (0.8-2.9); LYMPHOCYTES % 8.6 % (15.0-51.0); MEAN CORPUSCULAR HEMOGLOBIN 28.9 pg (29.0-33.0); MEAN CORPUSCULAR HGB CONC 30.9 g/dl (32.0-37.0); MEAN CORPUSCULAR VOLUME 93.4 fl (82.0-101.0); MEAN PLATELET VOLUME 9.5 fl (7.4-10.4); MONOCYTE # 0.7 10^3/ul (0.3-0.9); MONOCYTES % 9.2 % (0.0-11.0); NEUTROPHIL # 6.2 10^3/ul (1.6-7.5); NEUTROPHILS % 81.6 % (39.0-77.0); PLATELET COUNT 195 10^3/UL (140-415); RED BLOOD COUNT 4.09 10^6/ul (4.70-6.10); RED CELL DISTRIBUTION WIDTH 14.3 % (11.5-14.5)
[2018-10-24 06:47] LABS: ALANINE AMINOTRANSFERASE 38 IU/L (13-69); ALBUMIN 3.5 g/dl (3.3-4.9); ALBUMIN/GLOBULIN RATIO 1.25; ALKALINE PHOSPHATASE 40 IU/L (42-121); ANION GAP 6 (5-13); ASPARTATE AMINO TRANSFERASE 24 IU/L (15-46); BILIRUBIN,INDIRECT 0.5 mg/dl (0-1.1); BILIRUBIN,TOTAL 0.5 mg/dl (0.2-1.3); BLOOD UREA NITROGEN 54 mg/dl (7-20); CALCIUM 9.1 mg/dl (8.4-10.2); CARBON DIOXIDE 30 mmol/L (21-31); CHLORIDE 103 mmol/L (97-110); CREATININE 2.64 mg/dl (0.61-1.24); GLUCOSE 110 mg/dl (70-220); POTASSIUM 4.1 mmol/L (3.5-5.1); SODIUM 139 mmol/L (135-144); TOTAL PROTEIN 6.3 g/dl (6.1-8.1)
[2018-10-24 07:04] LABS: PHOSPHORUS 4.4 mg/dl (2.5-4.9)
[2018-10-24 07:04] LABS: MAGNESIUM 2.4 mg/dl (1.7-2.5)
[2018-10-24] MEDS: ARFORMOTEROL TARTRATE 15MCG/2 ML AMP INH ×2 (08:00→20:49)
[2018-10-24] MEDS: BUDESONIDE (NEB) 0.5MG/2ML AMP INH ×2 (08:57→20:49)
[2018-10-24] MEDS: METHYLPREDNISOLONE 40 MG INJ IV (09:58)
[2018-10-24] MEDS: MULTIVIT/CA CARB/B CMPLX/FA TAB PO (09:59)
[2018-10-24] MEDS: DOCUSATE SODIUM 100 MG CAP PO ×2 (09:59→20:52)
[2018-10-24] MEDS: FINASTERIDE 5 MG TAB PO (09:59)
[2018-10-24] MEDS: ALLOPURINOL 100 MG TAB PO (09:59)
[2018-10-24] MEDS: GABAPENTIN 100 MG CAP PO ×3 (09:59→20:52)
[2018-10-24] MEDS: BUMETANIDE 1 MG INJ IV ×2 (10:00→20:52)
[2018-10-24] MEDS: HEPARIN 5,000 UNIT/1 ML VIAL SC ×2 (10:02→21:10)
[2018-10-24 13:00] LABS: AADO2 Arterial 79.5 mmHg (7.0-24.0); Allen Test ACCEPTAB; Arterial Blood Gas Oxygen Sat 96.9 mmHG (95.0-100.0); Arterial COHb 0.2 % (0.0-3.0); Arterial Fraction of Oxyhgb 96.4 % (93.0-99.0); Arterial HCO3 25.8 mmol/L (22.0-26.0); Arterial MetHb 0.3 % (0.0-1.5); Arterial pCO2 51.6 mmhg (35-45); MODE NASAL CANNULA; Site Right Radial
[2018-10-24] MEDS: HEPARIN 1000 UNITS/ML 10 ML INJ HE (17:53)
[2018-10-24] MEDS: INSULIN GLARGINE [LANTus] (100 UNITS/ML) SYG SC (21:11)
[2018-10-25] MEDS: LEVOFLOXACIN 250 MG TAB PO (05:58)
[2018-10-25 06:47] LABS: ADD MAN DIFF? NO
[2018-10-25 06:59] LABS: BASOPHILS % 0.1 % (0.0-2.0); EOSINOPHILS % 0.5 % (0.0-7.0); HEMATOCRIT 38.3 % (42.0-52.0); HEMOGLOBIN 11.6 g/dl (14.0-18.0); LYMPHOCYTES # 0.8 10^3/ul (0.8-2.9); LYMPHOCYTES % 9.4 % (15.0-51.0); MEAN CORPUSCULAR HEMOGLOBIN 28.4 pg (29.0-33.0); MEAN CORPUSCULAR HGB CONC 30.3 g/dl (32.0-37.0); MEAN CORPUSCULAR VOLUME 93.9 fl (82.0-101.0); MONOCYTE # 0.6 10^3/ul (0.3-0.9); MONOCYTES % 7.5 % (0.0-11.0); NEUTROPHIL # 6.8 10^3/ul (1.6-7.5); NEUTROPHILS % 81.9 % (39.0-77.0); PLATELET COUNT 202 10^3/UL (140-415); RED BLOOD COUNT 4.08 10^6/ul (4.70-6.10); RED CELL DISTRIBUTION WIDTH 14.3 % (11.5-14.5)
[2018-10-25 06:59] LABS: WHITE BLOOD COUNT 8.4 10^3/ul (4.8-10.8)
[2018-10-25 07:20] LABS: ALANINE AMINOTRANSFERASE 32 IU/L (13-69); ALBUMIN 3.3 g/dl (3.3-4.9); ALBUMIN/GLOBULIN RATIO 1.22; ALKALINE PHOSPHATASE 44 IU/L (42-121); ANION GAP 7 (5-13); ASPARTATE AMINO TRANSFERASE 22 IU/L (15-46); BILIRUBIN,INDIRECT 0.6 mg/dl (0-1.1); BILIRUBIN,TOTAL 0.6 mg/dl (0.2-1.3); BLOOD UREA NITROGEN 54 mg/dl (7-20); CALCIUM 8.6 mg/dl (8.4-10.2); CARBON DIOXIDE 30 mmol/L (21-31); CHLORIDE 101 mmol/L (97-110); GLUCOSE 78 mg/dl (70-220); POTASSIUM 4.2 mmol/L (3.5-5.1); SODIUM 138 mmol/L (135-144)
[2018-10-25 07:23] LABS: MAGNESIUM 2.4 mg/dl (1.7-2.5)
[2018-10-25 07:23] LABS: PHOSPHORUS 5.4 mg/dl (2.5-4.9)
[2018-10-25] MEDS: INSULIN ASPART [NOVOLOG] 3 ML PEN SC ×4 (07:40→20:24)
[2018-10-25] MEDS: GLUCOSE GEL 15 GRAM TUBE PO (07:44)
[2018-10-25] MEDS: ARFORMOTEROL TARTRATE 15MCG/2 ML AMP INH ×2 (08:00→19:45)
[2018-10-25] MEDS: BUDESONIDE (NEB) 0.5MG/2ML AMP INH ×2 (08:30→19:45)
[2018-10-25] MEDS: ALBUTEROL 0.083% (NEB) 2.5 MG/3 ML AMP NEB (08:30)
[2018-10-25] MEDS: ALLOPURINOL 100 MG TAB PO (09:53)
[2018-10-25] MEDS: DOCUSATE SODIUM 100 MG CAP PO ×2 (09:53→20:20)
[2018-10-25] MEDS: BUMETANIDE 1 MG INJ IV ×2 (09:53→20:21)
[2018-10-25] MEDS: BISACODYL (EC) 5 MG TAB PO (09:53)
[2018-10-25] MEDS: GABAPENTIN 100 MG CAP PO ×3 (09:53→20:20)
[2018-10-25] MEDS: FINASTERIDE 5 MG TAB PO (09:53)
[2018-10-25] MEDS: MULTIVIT/CA CARB/B CMPLX/FA TAB PO (09:53)
[2018-10-25] MEDS: HEPARIN 5,000 UNIT/1 ML VIAL SC ×2 (09:59→20:29)
[2018-10-25] MEDS: INSULIN GLARGINE [LANTus] (100 UNITS/ML) SYG SC (20:29)
[2018-10-26] MEDS: HYDROCODONE/APAP (5/325) TAB PO ×2 (04:18→18:54)
[2018-10-26] MEDS: LEVOFLOXACIN 250 MG TAB PO (06:05)
[2018-10-26 06:45] LABS: ADD MAN DIFF? NO
[2018-10-26 06:59] LABS: BASOPHILS % 0.1 % (0.0-2.0); EOSINOPHILS # 0.2 10^3/ul (0.0-0.5); EOSINOPHILS % 2.2 % (0.0-7.0); HEMATOCRIT 37.5 % (42.0-52.0); HEMOGLOBIN 11.6 g/dl (14.0-18.0); MEAN CORPUSCULAR HEMOGLOBIN 28.6 pg (29.0-33.0); MEAN CORPUSCULAR HGB CONC 30.9 g/dl (32.0-37.0); MEAN CORPUSCULAR VOLUME 92.6 fl (82.0-101.0); MEAN PLATELET VOLUME 10.2 fl (7.4-10.4); MONOCYTE # 0.6 10^3/ul (0.3-0.9); MONOCYTES % 6.6 % (0.0-11.0); NEUTROPHIL # 7.8 10^3/ul (1.6-7.5); NEUTROPHILS % 80.3 % (39.0-77.0); PLATELET COUNT 213 10^3/UL (140-415); RED BLOOD COUNT 4.05 10^6/ul (4.70-6.10); RED CELL DISTRIBUTION WIDTH 14.5 % (11.5-14.5)
[2018-10-26 06:59] LABS: WHITE BLOOD COUNT 9.7 10^3/ul (4.8-10.8)
[2018-10-26 07:09] LABS: ALANINE AMINOTRANSFERASE 30 IU/L (13-69); ALBUMIN 3.1 g/dl (3.3-4.9); ALBUMIN/GLOBULIN RATIO 1.24; ALKALINE PHOSPHATASE 43 IU/L (42-121); ANION GAP 9 (5-13); ASPARTATE AMINO TRANSFERASE 19 IU/L (15-46); BILIRUBIN,INDIRECT 0.4 mg/dl (0-1.1); BILIRUBIN,TOTAL 0.4 mg/dl (0.2-1.3); BLOOD UREA NITROGEN 78 mg/dl (7-20); CALCIUM 8.4 mg/dl (8.4-10.2); CARBON DIOXIDE 27 mmol/L (21-31); CHLORIDE 100 mmol/L (97-110); GLUCOSE 88 mg/dl (70-220); POTASSIUM 3.8 mmol/L (3.5-5.1); SODIUM 136 mmol/L (135-144); TOTAL PROTEIN 5.6 g/dl (6.1-8.1)
[2018-10-26 07:18] LABS: CREATININE 4.13 mg/dl (0.61-1.24)
[2018-10-26 07:20] LABS: PHOSPHORUS 5.5 mg/dl (2.5-4.9)
[2018-10-26 07:20] LABS: MAGNESIUM 2.5 mg/dl (1.7-2.5)
[2018-10-26] MEDS: INSULIN ASPART [NOVOLOG] 3 ML PEN SC ×4 (07:59→21:00)
[2018-10-26] MEDS: ALBUTEROL 0.083% (NEB) 2.5 MG/3 ML AMP NEB (08:54)
[2018-10-26] MEDS: DOCUSATE SODIUM 100 MG CAP PO ×2 (09:00→21:00)
[2018-10-26] MEDS: BUMETANIDE 1 MG INJ IV ×2 (09:00→21:00)
[2018-10-26] MEDS: FINASTERIDE 5 MG TAB PO (09:00)
[2018-10-26] MEDS: MULTIVIT/CA CARB/B CMPLX/FA TAB PO (09:00)
[2018-10-26] MEDS: GABAPENTIN 100 MG CAP PO ×3 (09:00→21:00)
[2018-10-26] MEDS: HEPARIN 5,000 UNIT/1 ML VIAL SC (09:00)
[2018-10-26] MEDS: ALLOPURINOL 100 MG TAB PO (09:00)
[2018-10-26] MEDS: ARFORMOTEROL TARTRATE 15MCG/2 ML AMP INH ×2 (09:03→19:57)
[2018-10-26] MEDS: BUDESONIDE (NEB) 0.5MG/2ML AMP INH ×2 (09:11→19:57)
[2018-10-26] MEDS ORDERED: LIDOCAINE 1% (MDV) 20 ML INJ (10:55)
[2018-10-26] MEDS ORDERED: HEPARIN 1000 UNITS/ML 10 ML INJ (10:55)
[2018-10-26] MEDS: INSULIN GLARGINE [LANTus] (100 UNITS/ML) SYG SC (20:00)
[2018-10-26] MEDS: APIXABAN 5 MG TABLET PO (21:00)
[2018-10-27] MEDS: HYDROCODONE/APAP (5/325) TAB PO (02:22)
[2018-10-27] MEDS: LEVOFLOXACIN 250 MG TAB PO (06:03)
[2018-10-27] MEDS: DOCUSATE SODIUM 100 MG CAP PO (08:39)
[2018-10-27] MEDS: ALLOPURINOL 100 MG TAB PO (08:39)
[2018-10-27] MEDS: BUMETANIDE 1 MG INJ IV (08:39)
[2018-10-27] MEDS: FINASTERIDE 5 MG TAB PO (08:39)
[2018-10-27] MEDS: MULTIVIT/CA CARB/B CMPLX/FA TAB PO (08:39)
[2018-10-27] MEDS: GABAPENTIN 100 MG CAP PO ×2 (08:39→12:33)
[2018-10-27] MEDS: BUDESONIDE (NEB) 0.5MG/2ML AMP INH (09:40)
[2018-10-27] MEDS: ARFORMOTEROL TARTRATE 15MCG/2 ML AMP INH (09:40)
[2018-10-27] MEDS: INSULIN ASPART [NOVOLOG] 3 ML PEN SC ×2 (09:56→12:42)
[2018-10-27] MEDS: MAGNESIUM OXIDE 400 MG TAB PO (12:33)
[2018-10-27] MEDS: NA PHOSPHATE/BIPHOS 133 ML ENEMA PR (12:33)
[2018-10-27] MEDS: POTASSIUM CHLORIDE (SR) 20 MEQ TAB PO (12:33)
== END 2018-10-27 14:37 | DRG 291 ==
LOC: E/R 06:39 → 6WM 08:11
PROC: 0JHD3XZ Insertion of Tunneled Vascular Access Device into Right Upper Arm Subcutaneous Tissue and Fascia, Percutaneous Approach (ICD-10-PCS; principal; 2018-10-26 10:00)
PROC: B513ZZA Fluoroscopy of Right Jugular Veins, Guidance (ICD-10-PCS; 2018-10-26 10:00)
PROC: 02HV33Z Insertion of Infusion Device into Superior Vena Cava, Percutaneous Approach (ICD-10-PCS; 2018-10-26 10:00)
PROC: B518ZZA Fluoroscopy of Superior Vena Cava, Guidance (ICD-10-PCS; 2018-10-26 10:00)
PROC: 5A1D70Z Performance of Urinary Filtration, Intermittent, Less than 6 Hours Per Day (ICD-10-PCS; 2018-10-26 10:44)
PROC: 4A133R1 Monitoring of Arterial Saturation, Peripheral, Percutaneous Approach (ICD-10-PCS; 2018-10-26 10:44)
PROC: 06HM33Z Insertion of Infusion Device into Right Femoral Vein, Percutaneous Approach (ICD-10-PCS; 2018-10-26 10:44)
PROC: 5A09557 Assistance with Respiratory Ventilation, Greater than 96 Consecutive Hours, Continuous Positive Airway Pressure (ICD-10-PCS; 2018-10-26 10:44)
DX: I13.0 Hypertensive heart and chronic kidney disease with heart failure and stage 1 through stage 4 chronic kidney disease, or unspecified chronic kidney disease (principal); J96.21 Acute and chronic respiratory failure with hypoxia; I50.23 Acute on chronic systolic (congestive) heart failure; J18.0 Bronchopneumonia, unspecified organism; J44.1 Chronic obstructive pulmonary disease with (acute) exacerbation; N17.9 Acute kidney failure, unspecified; J44.0 Chronic obstructive pulmonary disease with (acute) lower respiratory infection; N18.4 Chronic kidney disease, stage 4 (severe); I48.91 Unspecified atrial fibrillation; N40.0 Benign prostatic hyperplasia without lower urinary tract symptoms; I42.9 Cardiomyopathy, unspecified; E78.5 Hyperlipidemia, unspecified; E11.22 Type 2 diabetes mellitus with diabetic chronic kidney disease; E11.21 Type 2 diabetes mellitus with diabetic nephropathy; K59.00 Constipation, unspecified; E11.51 Type 2 diabetes mellitus with diabetic peripheral angiopathy without gangrene; I71.4 Abdominal aortic aneurysm, without rupture; Z99.81 Dependence on supplemental oxygen; Z79.82 Long term (current) use of aspirin; Z79.01 Long term (current) use of anticoagulants; Z87.891 Personal history of nicotine dependence
CPT/HCPCS: 36415; 36600; 71045; 71250; 80048; 80053; 82550; 82553; 82803; 82962; 83735; 83880; 84100; 84484; 84560; 85025; 85610; 85730; 86703; 86704; 86709; 86803; 87340; 90935; 93005; 93306; 93970; 94640; 94660; 94664; 96374; 96375; 97110; 97116; 97161; 97530; 99285-25

== ENCOUNTER 2018-10-30 19:39 | Inpatient (IN) | payer OTHER ==
[2018-10-30] MEDS: PANTOPRAZOLE 40 MG INJ IV (19:56)
[2018-10-30] MEDS: CEFEPIME 2GM/50 ML (PMX) 50 ML IVPB (19:56)
[2018-10-30] MEDS: SODIUM CHLORIDE 0.9% 1L BAG IV* (19:56)
[2018-10-30] MEDS: VANCOMYCIN 1 GM (PMX) 250 ML IVPB (20:00)
[2018-10-30 20:50] LABS: ADD MAN DIFF? NO
[2018-10-30 20:52] LABS: BASOPHILS % 0.2 % (0.0-2.0); EOSINOPHILS # 0.1 10^3/ul (0.0-0.5); EOSINOPHILS % 0.4 % (0.0-7.0); HEMATOCRIT 29.7 % (42.0-52.0); HEMOGLOBIN 9.5 g/dl (14.0-18.0); LYMPHOCYTES # 0.6 10^3/ul (0.8-2.9); LYMPHOCYTES % 3.2 % (15.0-51.0); MEAN CORPUSCULAR HEMOGLOBIN 28.9 pg (29.0-33.0); MEAN CORPUSCULAR VOLUME 90.3 fl (82.0-101.0); MEAN PLATELET VOLUME 9.3 fl (7.4-10.4); MONOCYTE # 1.3 10^3/ul (0.3-0.9); MONOCYTES % 6.7 % (0.0-11.0); NEUTROPHILS % 88.6 % (39.0-77.0); PLATELET COUNT 237 10^3/UL (140-415); RED BLOOD COUNT 3.29 10^6/ul (4.70-6.10); RED CELL DISTRIBUTION WIDTH 15.1 % (11.5-14.5)
[2018-10-30 20:52] LABS: WHITE BLOOD COUNT 19.2 10^3/ul (4.8-10.8)
[2018-10-30 21:11] LABS: ALANINE AMINOTRANSFERASE 23 IU/L (13-69); ALBUMIN 3.1 g/dl (3.3-4.9); ALBUMIN/GLOBULIN RATIO 1.14; ALKALINE PHOSPHATASE 58 IU/L (42-121); ANION GAP 19 (5-13); ASPARTATE AMINO TRANSFERASE 32 IU/L (15-46); BILIRUBIN,INDIRECT 0.1 mg/dl (0-1.1); BILIRUBIN,TOTAL 0.1 mg/dl (0.2-1.3); CALCIUM 8.6 mg/dl (8.4-10.2); CARBON DIOXIDE 21 mmol/L (21-31); CHLORIDE 95 mmol/L (97-110); GLUCOSE 112 mg/dl (70-220); POTASSIUM 5.5 mmol/L (3.5-5.1); SODIUM 135 mmol/L (135-144); TOTAL PROTEIN 5.8 g/dl (6.1-8.1)
[2018-10-30 21:12] LABS: INR 1.13; PARTIAL THROMBOPLASTIN TIME 34.9 Sec (23.0-35.0); PROTIME 14.6 Sec (11.9-14.9); PT RATIO 1.1
[2018-10-30 21:22] LABS: TROPONIN-I 0.049 ng/ml (0.000-0.120)
[2018-10-30 21:24] LABS: BLOOD UREA NITROGEN 145 mg/dl (7-20); CREATININE 8.23 mg/dl (0.61-1.24)
[2018-10-30 22:28] LABS: LACTIC ACID 1.2 mmol/L (0.5-2.0)
[2018-10-30] MEDS: MIDODRINE 5 MG TAB PO (23:00)
[2018-10-30] MEDS ORDERED: ONDANSETRON 4 MG INJ IV (23:00)
[2018-10-30] MEDS ORDERED: VANCOMYCIN IV PER PHARMACY XX (23:00)
[2018-10-30] MEDS ORDERED: ALBUTEROL 0.083% (NEB) 2.5 MG/3 ML AMP NEB (23:00)
[2018-10-30] MEDS ORDERED: ACETAMINOPHEN 325 MG TAB PO (23:00)
[2018-10-30] MEDS: PIPER-TAZO 2.25 GM (PMX) 50 ML IVPB (23:00)
[2018-10-30] MEDS: KETAMINE HCL (50 MG/ML) 1ml syringe IV (23:10)
[2018-10-31 00:22] LABS: LACTIC ACID 0.9 mmol/L (0.5-2.0)
[2018-10-31] MEDS: PIPER-TAZO 2.25 GM (PMX) 50 ML IVPB ×3 (06:17→21:32)
[2018-10-31 06:48] LABS: ADD MAN DIFF? NO
[2018-10-31 06:59] LABS: ABNORMAL IP MESSAGE 1; BASOPHILS % 0.2 % (0.0-2.0); EOSINOPHILS # 0.1 10^3/ul (0.0-0.5); EOSINOPHILS % 0.4 % (0.0-7.0); HEMATOCRIT 25.9 % (42.0-52.0); HEMOGLOBIN 8.3 g/dl (14.0-18.0); LYMPHOCYTES # 0.4 10^3/ul (0.8-2.9); MEAN CORPUSCULAR HEMOGLOBIN 29.2 pg (29.0-33.0); MEAN CORPUSCULAR VOLUME 91.2 fl (82.0-101.0); MEAN PLATELET VOLUME 9.7 fl (7.4-10.4); MONOCYTE # 1.3 10^3/ul (0.3-0.9); MONOCYTES % 6.8 % (0.0-11.0); NEUTROPHIL # 17.6 10^3/ul (1.6-7.5); NEUTROPHILS % 89.6 % (39.0-77.0); PLATELET COUNT 223 10^3/UL (140-415); POSITIVE DIFF @See below; RED BLOOD COUNT 2.84 10^6/ul (4.70-6.10); RED CELL DISTRIBUTION WIDTH 15.3 % (11.5-14.5)
[2018-10-31 06:59] LABS: WHITE BLOOD COUNT 19.6 10^3/ul (4.8-10.8)
[2018-10-31 07:12] LABS: ANION GAP 16 (5-13); CALCIUM 7.5 mg/dl (8.4-10.2); CARBON DIOXIDE 19 mmol/L (21-31); CHLORIDE 103 mmol/L (97-110); GLUCOSE 74 mg/dl (70-220); POTASSIUM 4.7 mmol/L (3.5-5.1); SODIUM 138 mmol/L (135-144)
[2018-10-31 07:19] LABS: CREATININE 6.91 mg/dl (0.61-1.24)
[2018-10-31 07:20] LABS: BLOOD UREA NITROGEN 140 mg/dl (7-20)
[2018-10-31] MEDS: REPAGLINIDE 2 MG TAB PO ×3 (07:25→16:34)
[2018-10-31] MEDS: FINASTERIDE 5 MG TAB PO (08:31)
[2018-10-31] MEDS: ROFLUMILAST 500 MCG TABLET PO (08:31)
[2018-10-31] MEDS: ALLOPURINOL 100 MG TAB PO (08:32)
[2018-10-31] MEDS: PANTOPRAZOLE 40 MG INJ IV (08:32)
[2018-10-31] MEDS: MULTIVIT/CA CARB/B CMPLX/FA TAB PO (08:32)
[2018-10-31] MEDS: GABAPENTIN 100 MG CAP PO ×3 (08:33→21:30)
[2018-10-31] MEDS: FLUTICASONE 0.05% 16 GM NAS SPRAY NASAL ×3 (09:00→21:32)
[2018-10-31] MEDS: MIDODRINE 5 MG TAB PO ×2 (09:00→21:31)
[2018-10-31] MEDS: DEXTROSE 5%-0.45% NACL 1,000 ML IV (12:06)
[2018-10-31] MEDS: PANTOPRAZOLE IV 80 MG in SOD CHLORIDE 0.9% 100 ML IV (13:50)
[2018-10-31] MEDS: TAMSULOSIN (SR) 0.4 MG CAP PO (21:30)
[2018-11-01] MEDS ORDERED: morphine 4 MG/ML VIAL IV
[2018-11-01] MEDS: PANTOPRAZOLE IV 80 MG in SOD CHLORIDE 0.9% 100 ML IV ×3 (00:18→19:44)
[2018-11-01] MEDS: morphine 2 MG INJ IV (00:19)
[2018-11-01] MEDS: DEXTROSE 5%-0.45% NACL 1,000 ML IV ×2 (02:18→16:36)
[2018-11-01] MEDS: PIPER-TAZO 2.25 GM (PMX) 50 ML IVPB ×3 (05:46→21:53)
[2018-11-01] MEDS: REPAGLINIDE 2 MG TAB PO ×3 (07:25→17:25)
[2018-11-01] MEDS: ROFLUMILAST 500 MCG TABLET PO (08:46)
[2018-11-01] MEDS: GABAPENTIN 100 MG CAP PO ×3 (08:46→21:51)
[2018-11-01] MEDS: FLUTICASONE 0.05% 16 GM NAS SPRAY NASAL ×3 (09:00→21:50)
[2018-11-01] MEDS: FINASTERIDE 5 MG TAB PO (09:00)
[2018-11-01] MEDS: MIDODRINE 5 MG TAB PO ×2 (09:00→21:52)
[2018-11-01] MEDS: MULTIVIT/CA CARB/B CMPLX/FA TAB PO (09:00)
[2018-11-01] MEDS: ALLOPURINOL 100 MG TAB PO (09:00)
[2018-11-01] MEDS ORDERED: SODIUM CHLORIDE 0.9% 1L BAG IV (10:00)
[2018-11-01] MEDS ORDERED: HEPARIN 1000 UNITS/ML 10 ML INJ CATHETER (10:00)
[2018-11-01] MEDS: ALBUMIN HUMAN 25% 100 ML IV (10:41)
[2018-11-01 11:50] LABS: ADD MAN DIFF? NO
[2018-11-01 11:59] LABS: ABNORMAL IP MESSAGE 1; BASOPHILS % 0.1 % (0.0-2.0); EOSINOPHILS % 0.1 % (0.0-7.0); HEMATOCRIT 23.7 % (42.0-52.0); HEMOGLOBIN 7.5 g/dl (14.0-18.0); LYMPHOCYTES # 0.4 10^3/ul (0.8-2.9); LYMPHOCYTES % 2.7 % (15.0-51.0); MEAN CORPUSCULAR HEMOGLOBIN 28.7 pg (29.0-33.0); MEAN CORPUSCULAR HGB CONC 31.6 g/dl (32.0-37.0); MEAN CORPUSCULAR VOLUME 90.8 fl (82.0-101.0); MEAN PLATELET VOLUME 9.4 fl (7.4-10.4); MONOCYTE # 1.2 10^3/ul (0.3-0.9); MONOCYTES % 7.2 % (0.0-11.0); NEUTROPHIL # 14.2 10^3/ul (1.6-7.5); NEUTROPHILS % 88.7 % (39.0-77.0); PLATELET COUNT 209 10^3/UL (140-415); POSITIVE DIFF @See below; RED BLOOD COUNT 2.61 10^6/ul (4.70-6.10); RED CELL DISTRIBUTION WIDTH 15.8 % (11.5-14.5)
[2018-11-01 11:59] LABS: WHITE BLOOD COUNT 16.1 10^3/ul (4.8-10.8)
[2018-11-01 12:25] LABS: ANION GAP 19 (5-13); CALCIUM 8.4 mg/dl (8.4-10.2); CARBON DIOXIDE 17 mmol/L (21-31); CHLORIDE 104 mmol/L (97-110); GLUCOSE 77 mg/dl (70-220); POTASSIUM 4.8 mmol/L (3.5-5.1); SODIUM 140 mmol/L (135-144)
[2018-11-01 12:32] LABS: BLOOD UREA NITROGEN 144 mg/dl (7-20); CREATININE 7.46 mg/dl (0.61-1.24)
[2018-11-01] MEDS: MANNITOL 25% 50 ML IV ×2 (12:48→13:57)
[2018-11-01] MEDS: HEPARIN 1000 UNITS/ML 10 ML INJ CATHETER (14:05)
[2018-11-01] MEDS: AMIODARONE 900 MG in DEXTROSE 5% 482 ML IV (15:12)
[2018-11-01 16:28] LABS: IMMEDIATE SPIN CROSSMATCH 1 1
[2018-11-01] MEDS: AMIODARONE 150MG/D5W BOLUS 100 ML IV (17:14)
[2018-11-01] MEDS: TAMSULOSIN (SR) 0.4 MG CAP PO (21:53)
[2018-11-02] MEDS: morphine 2 MG INJ IV ×3 (04:51→20:38)
[2018-11-02 05:19] LABS: ADD MAN DIFF? NO
[2018-11-02 05:23] LABS: WHITE BLOOD COUNT 18.3 10^3/ul (4.8-10.8)
[2018-11-02 05:23] LABS: ABNORMAL IP MESSAGE 1; BASOPHILS % 0.2 % (0.0-2.0); EOSINOPHILS % 0.2 % (0.0-7.0); HEMATOCRIT 27.5 % (42.0-52.0); HEMOGLOBIN 9.1 g/dl (14.0-18.0); LYMPHOCYTES # 0.6 10^3/ul (0.8-2.9); MEAN CORPUSCULAR HEMOGLOBIN 29.6 pg (29.0-33.0); MEAN CORPUSCULAR HGB CONC 33.1 g/dl (32.0-37.0); MEAN CORPUSCULAR VOLUME 89.6 fl (82.0-101.0); MEAN PLATELET VOLUME 9.3 fl (7.4-10.4); MONOCYTE # 1.6 10^3/ul (0.3-0.9); MONOCYTES % 8.8 % (0.0-11.0); NEUTROPHIL # 15.7 10^3/ul (1.6-7.5); NEUTROPHILS % 85.9 % (39.0-77.0); NUCLEATED RED BLOOD CELLS% 0.2 /100WBC (0.0-0.0); PLATELET COUNT 194 10^3/UL (140-415); POSITIVE DIFF @See below; RED BLOOD COUNT 3.07 10^6/ul (4.70-6.10); RED CELL DISTRIBUTION WIDTH 15.3 % (11.5-14.5)
[2018-11-02 05:52] LABS: ANION GAP 17 (5-13); BLOOD UREA NITROGEN 80 mg/dl (7-20); CALCIUM 8.5 mg/dl (8.4-10.2); CARBON DIOXIDE 22 mmol/L (21-31); CHLORIDE 100 mmol/L (97-110); GLUCOSE 107 mg/dl (70-220); POTASSIUM 4.1 mmol/L (3.5-5.1); SODIUM 139 mmol/L (135-144)
[2018-11-02 05:59] LABS: CREATININE 5.34 mg/dl (0.61-1.24)
[2018-11-02 06:02] LABS: VANCOMYCIN,RANDOM 9.2 ug/ml
[2018-11-02] MEDS: PIPER-TAZO 2.25 GM (PMX) 50 ML IVPB ×3 (06:04→22:00)
[2018-11-02] MEDS: PANTOPRAZOLE IV 80 MG in SOD CHLORIDE 0.9% 100 ML IV ×2 (06:04→15:54)
[2018-11-02] MEDS: DEXTROSE 5%-0.45% NACL 1,000 ML IV ×2 (06:05→20:40)
[2018-11-02] MEDS: REPAGLINIDE 2 MG TAB PO ×3 (07:25→16:43)
[2018-11-02] MEDS: MIDODRINE 5 MG TAB PO ×2 (09:00→20:39)
[2018-11-02] MEDS: MULTIVIT/CA CARB/B CMPLX/FA TAB PO (09:00)
[2018-11-02] MEDS: GABAPENTIN 100 MG CAP PO ×3 (09:00→20:39)
[2018-11-02] MEDS: FLUTICASONE 0.05% 16 GM NAS SPRAY NASAL ×3 (09:00→20:39)
[2018-11-02] MEDS: FINASTERIDE 5 MG TAB PO (09:00)
[2018-11-02] MEDS: ROFLUMILAST 500 MCG TABLET PO (09:00)
[2018-11-02] MEDS: ALLOPURINOL 100 MG TAB PO (09:00)
[2018-11-02] MEDS: ALBUMIN HUMAN 25% 100 ML IV (09:00)
[2018-11-02] MEDS: HEPARIN 1000 UNITS/ML 10 ML INJ CATHETER (12:15)
[2018-11-02] MEDS: VANCOMYCIN 1 GM 250 ML IVPB (13:10)
[2018-11-02] MEDS: TAMSULOSIN (SR) 0.4 MG CAP PO (20:39)
[2018-11-03] MEDS: PANTOPRAZOLE IV 80 MG in SOD CHLORIDE 0.9% 100 ML IV ×3 (01:12→21:07)
[2018-11-03] MEDS: morphine 2 MG INJ IV ×4 (05:45→21:09)
[2018-11-03] MEDS: PIPER-TAZO 2.25 GM (PMX) 50 ML IVPB ×3 (05:45→21:07)
[2018-11-03 06:30] LABS: ADD MAN DIFF? NO
[2018-11-03 06:32] LABS: WHITE BLOOD COUNT 17.1 10^3/ul (4.8-10.8)
[2018-11-03 06:32] LABS: ABNORMAL IP MESSAGE 1; BASOPHILS % 0.2 % (0.0-2.0); EOSINOPHILS % 0.2 % (0.0-7.0); HEMATOCRIT 28.1 % (42.0-52.0); LYMPHOCYTES # 0.4 10^3/ul (0.8-2.9); LYMPHOCYTES % 2.2 % (15.0-51.0); MEAN CORPUSCULAR HEMOGLOBIN 28.9 pg (29.0-33.0); MEAN CORPUSCULAR VOLUME 90.4 fl (82.0-101.0); MEAN PLATELET VOLUME 8.9 fl (7.4-10.4); MONOCYTE # 1.3 10^3/ul (0.3-0.9); MONOCYTES % 7.3 % (0.0-11.0); NEUTROPHIL # 15.2 10^3/ul (1.6-7.5); NEUTROPHILS % 88.8 % (39.0-77.0); NUCLEATED RED BLOOD CELLS% 0.2 /100WBC (0.0-0.0); PLATELET COUNT 186 10^3/UL (140-415); POSITIVE DIFF @See below; RED BLOOD COUNT 3.11 10^6/ul (4.70-6.10); RED CELL DISTRIBUTION WIDTH 15.9 % (11.5-14.5)
[2018-11-03 07:00] LABS: ANION GAP 16 (5-13); BLOOD UREA NITROGEN 60 mg/dl (7-20); CALCIUM 9.2 mg/dl (8.4-10.2); CARBON DIOXIDE 24 mmol/L (21-31); CHLORIDE 101 mmol/L (97-110); GLUCOSE 81 mg/dl (70-220); SODIUM 141 mmol/L (135-144)
[2018-11-03 07:17] LABS: CREATININE 5.01 mg/dl (0.61-1.24)
[2018-11-03] MEDS: REPAGLINIDE 2 MG TAB PO ×3 (07:25→17:25)
[2018-11-03] MEDS: MIDODRINE 5 MG TAB PO ×2 (09:00→20:41)
[2018-11-03] MEDS: ROFLUMILAST 500 MCG TABLET PO (09:00)
[2018-11-03] MEDS: MULTIVIT/CA CARB/B CMPLX/FA TAB PO (09:00)
[2018-11-03] MEDS: GABAPENTIN 100 MG CAP PO ×3 (09:00→20:40)
[2018-11-03] MEDS: FINASTERIDE 5 MG TAB PO (09:00)
[2018-11-03] MEDS: FLUTICASONE 0.05% 16 GM NAS SPRAY NASAL ×3 (09:00→21:07)
[2018-11-03] MEDS: ALLOPURINOL 100 MG TAB PO (09:00)
[2018-11-03] MEDS: HEPARIN 1000 UNITS/ML 10 ML INJ CATHETER (12:17)
[2018-11-03] MEDS: DILTIAZEM 25 MG INJ IV (13:19)
[2018-11-03] MEDS: DILTIAZEM 125 MG in SOD CHLORIDE 0.9% 100 ML IV (14:43)
[2018-11-03 19:16] LABS: PROCALCITONIN 6.15 ng/mL (0.00-0.10)
[2018-11-03] MEDS: TAMSULOSIN (SR) 0.4 MG CAP PO (20:40)
[2018-11-03] MEDS: AMIODARONE 900 MG in DEXTROSE 5% 482 ML IV (20:52)
[2018-11-03] MEDS ORDERED: DILTIAZEM 25 MG INJ IV (21:00)
[2018-11-03] MEDS: ONDANSETRON 4 MG INJ IV (21:08)
[2018-11-03] MEDS: NA POLYST SULFON 15 GM/60 ML BTL PO (21:08)
[2018-11-03] MEDS: DEXTROSE 5%-0.45% NACL 1,000 ML IV (22:29)
[2018-11-04] MEDS: AMIODARONE 900 MG in DEXTROSE 5% 482 ML IV (03:11)
[2018-11-04] MEDS: PIPER-TAZO 2.25 GM (PMX) 50 ML IVPB ×3 (05:48→22:52)
[2018-11-04] MEDS: morphine 2 MG INJ IV ×4 (05:49→22:53)
[2018-11-04] MEDS: PANTOPRAZOLE IV 80 MG in SOD CHLORIDE 0.9% 100 ML IV (06:21)
[2018-11-04 07:04] LABS: ADD MAN DIFF? NO
[2018-11-04 07:15] LABS: WHITE BLOOD COUNT 17.5 10^3/ul (4.8-10.8)
[2018-11-04 07:15] LABS: ABNORMAL IP MESSAGE 1; BASOPHIL # 0.1 10^3/ul (0.0-0.1); BASOPHILS % 0.3 % (0.0-2.0); EOSINOPHILS # 0.1 10^3/ul (0.0-0.5); EOSINOPHILS % 0.6 % (0.0-7.0); HEMATOCRIT 27.9 % (42.0-52.0); HEMOGLOBIN 8.9 g/dl (14.0-18.0); LYMPHOCYTES # 0.4 10^3/ul (0.8-2.9); LYMPHOCYTES % 2.2 % (15.0-51.0); MEAN CORPUSCULAR HEMOGLOBIN 29.2 pg (29.0-33.0); MEAN CORPUSCULAR HGB CONC 31.9 g/dl (32.0-37.0); MEAN CORPUSCULAR VOLUME 91.5 fl (82.0-101.0); MEAN PLATELET VOLUME 9.6 fl (7.4-10.4); MONOCYTE # 1.1 10^3/ul (0.3-0.9); MONOCYTES % 6.3 % (0.0-11.0); NEUTROPHIL # 15.7 10^3/ul (1.6-7.5); NEUTROPHILS % 89.6 % (39.0-77.0); NUCLEATED RED BLOOD CELLS # 0.1 10^3/ul (0.0-0.0); NUCLEATED RED BLOOD CELLS% 0.3 /100WBC (0.0-0.0); PLATELET COUNT 182 10^3/UL (140-415); POSITIVE DIFF @See below; RED BLOOD COUNT 3.05 10^6/ul (4.70-6.10)
[2018-11-04] MEDS: REPAGLINIDE 2 MG TAB PO ×3 (07:25→17:25)
[2018-11-04 07:55] LABS: ALANINE AMINOTRANSFERASE 37 IU/L (13-69); ALBUMIN 3.1 g/dl (3.3-4.9); ALKALINE PHOSPHATASE 114 IU/L (42-121); ANION GAP 13 (5-13); ASPARTATE AMINO TRANSFERASE 50 IU/L (15-46); BILIRUBIN,INDIRECT 0.2 mg/dl (0-1.1); BILIRUBIN,TOTAL 0.2 mg/dl (0.2-1.3); BLOOD UREA NITROGEN 60 mg/dl (7-20); CALCIUM 9.1 mg/dl (8.4-10.2); CARBON DIOXIDE 25 mmol/L (21-31); CHLORIDE 100 mmol/L (97-110); GLUCOSE 177 mg/dl (70-220); MAGNESIUM 2.2 mg/dl (1.7-2.5); SODIUM 138 mmol/L (135-144); TOTAL PROTEIN 5.9 g/dl (6.1-8.1)
[2018-11-04 08:10] LABS: CREATININE 5.17 mg/dl (0.61-1.24)
[2018-11-04] MEDS: GABAPENTIN 100 MG CAP PO ×3 (09:00→20:46)
[2018-11-04] MEDS: ROFLUMILAST 500 MCG TABLET PO (09:00)
[2018-11-04] MEDS: FINASTERIDE 5 MG TAB PO (09:00)
[2018-11-04] MEDS: MIDODRINE 5 MG TAB PO ×2 (09:00→20:46)
[2018-11-04] MEDS: MULTIVIT/CA CARB/B CMPLX/FA TAB PO (09:00)
[2018-11-04] MEDS: ALLOPURINOL 100 MG TAB PO (09:00)
[2018-11-04] MEDS: FLUTICASONE 0.05% 16 GM NAS SPRAY NASAL ×3 (09:44→20:46)
[2018-11-04] MEDS: DEXTROSE 5%-0.45% NACL 1,000 ML IV ×2 (11:48→15:08)
[2018-11-04] MEDS: TAMSULOSIN (SR) 0.4 MG CAP PO (20:46)
[2018-11-05] MEDS ORDERED: LORAZEPAM 2 MG INJ IV (00:30)
[2018-11-05] MEDS ORDERED: morphine 2 MG INJ IV (00:30)
[2018-11-05] MEDS: LORAZEPAM 2 MG INJ IV (00:33)
[2018-11-05] MEDS ORDERED: PANTOPRAZOLE 40 MG INJ IV (06:00)
== END 2018-11-05 09:50 | disposition expired | DRG 64 ==
LOC: TEL 22:48 → E/R 19:39 → TEL 10-31 22:05
PROC: 30233N1 Transfusion of Nonautologous Red Blood Cells into Peripheral Vein, Percutaneous Approach (ICD-10-PCS; principal; 2018-11-01)
PROC: 5A1D70Z Performance of Urinary Filtration, Intermittent, Less than 6 Hours Per Day (ICD-10-PCS; 2018-11-01)
DX: I62.9 Nontraumatic intracranial hemorrhage, unspecified (principal); J18.9 Pneumonia, unspecified organism; N18.6 End stage renal disease; I12.0 Hypertensive chronic kidney disease with stage 5 chronic kidney disease or end stage renal disease; N17.9 Acute kidney failure, unspecified; D62 Acute posthemorrhagic anemia; G93.49 Other encephalopathy; G81.91 Hemiplegia, unspecified affecting right dominant side; K92.1 Melena; J44.0 Chronic obstructive pulmonary disease with (acute) lower respiratory infection; I42.9 Cardiomyopathy, unspecified; I47.1 Supraventricular tachycardia; Z99.2 Dependence on renal dialysis; R13.10 Dysphagia, unspecified; E87.5 Hyperkalemia; I71.4 Abdominal aortic aneurysm, without rupture; I65.22 Occlusion and stenosis of left carotid artery; E11.22 Type 2 diabetes mellitus with diabetic chronic kidney disease; Z87.891 Personal history of nicotine dependence; N40.0 Benign prostatic hyperplasia without lower urinary tract symptoms; I48.0 Paroxysmal atrial fibrillation; Z66 Do not resuscitate; R09.02 Hypoxemia; I95.9 Hypotension, unspecified
CPT/HCPCS: 36415; 36430; 70551; 71045; 73130-RT; 74176; 80048; 80053; 80202; 83605; 83735; 84145; 84484; 85025; 85610; 85730; 86850; 86900; 86901; 86920; 87040-91; 90935; 92526; 92610; 93005; 93970; 96374; 96375; 99285-25